=== PATIENT | male | born 1970 | race American Indian/Alaskan Native ===

== ENCOUNTER 2017-03-23 12:07 | Emergency (ER) | payer OTHER ==
--- NOTE | 2017-03-23 12:58 | Emergency Department Report ---
Entered by NAT CALDERON, acting as scribe for ELI RANDOLPH NP. Chief Complaint: Chest Pain Stated Complaint: KNOT IN GROIN AREA - HPI History of Present Illness: 46 y/o male, nontoxic, well developed, NAD, c/o midsternal chest pain beginning 2 years ago, sharp in quality, 4/10 in severity. Associated radiation to the back but radha SOB, SPRINGER, NVD, Blurry vision. Patient also c/o of left groin knot - Exam Vital Signs: Vital Signs 03/23/17 12:22 Temperature 98.1 F Pulse Rate 70 Respiratory 14 Rate Blood Pressure 135/89 O2 Sat by Pulse 99 Oximetry Physical Exam: GENERAL: The patient is a well-developed, well-nourished male in no apparent distress. Patient is alert and oriented x3. LUNGS: Clear to auscultation. Non labor breathing. No intercostal retractions. HEART: Regular rate and rhythm without murmur, rubs or gallops. No reproducible ABDOMEN: Soft, nontender, and nondistended. Positive bowel sounds. Left groin hernia. No hepatosplenomegaly was noted. No guarding or rebound tenderness, negative epigastric bruit. Negative psoas sign, negative muniz sign, negative McBurneys sign MSE screening note: Focused history and physical exam performed. Due to findings the following was ordered: EKG, Cardia CK/CKMB, CBC, CMP, Troponin, CXR ED Disposition for MSE Condition: Stable This documentation as recorded by the scribe,NAT CALDERON,accurately reflects the service I personally performed and the decisions made by ,ELI RANDOLPH, SATNAM.
[2017-03-23 13:32] LABS: Basophils % (Auto) 0.9 % (0.0-1.8); Eosinophils % (Auto) 4.7 % (0.0-4.3); Hemoglobin 16.3 gm/dl (11.8-15.2); Mean Corpuscular HGB Conc 34 % (32-34); Mean Corpuscular Hemoglobin 32 pg (28-32); Mean Corpuscular Volume 93 fl (84-94); Platelet Count 145 K/mm3 (140-440); Red Blood Count 5.14 M/mm3 (3.65-5.03); Red Cell Distribution Width 13.6 % (13.2-15.2); White Blood Count 5.2 K/mm3 (4.5-11.0)
[2017-03-23 13:58] LABS: Alanine Aminotransferase 13 units/L (7-56); Albumin 4.2 g/dL (3.9-5); Albumin/Globulin Ratio 1.6 %; Alkaline Phosphatase 54 units/L (35-129); Anion Gap 16 mmol/L; Blood Urea Nitrogen 8 mg/dL (9-20); Calcium 9.2 mg/dL (8.4-10.2); Carbon Dioxide 26 mmol/L (22-30); Chloride 103.6 mmol/L (98-107); Creatine Kinase 85 units/L (55-170); Glucose 93 mg/dL (75-100); Sodium 142 mmol/L (137-145); Total Protein 6.9 g/dL (6.3-8.2)
--- NOTE | 2017-03-23 14:24 | XRay Report ---
Chest 2 views: History: Chest pain. Findings: Normal cardiomediastinal silhouette. Trachea is midline. No consolidation, pneumothorax or pleural effusion. 8mm circumscribed density noted in the right infraclavicular region. This is partially obscured by ribs. Impression: Circumscribed density right apex. Comparison with previous studies is recommended. If previous study is not available and CT scan advised.
--- NOTE | 2017-03-24 07:47 | Emergency Department Report ---
ED Chest Pain HPI - General Chief Complaint: Chest Pain Stated Complaint: KNOT IN GROIN AREA Time Seen by Provider: 03/24/17 07:34 Source: patient Mode of arrival: Ambulatory Limitations: No Limitations - History of Present Illness Initial Comments: 46-year-old male presents to the emergency department complaining of chest pain. Patient states he has been having upper, mid sternal chest pain for the past 2 years. Pain is intermittent, but he states it is there most of the time. Pain is worse with movement. Pain does not radiate. Pain is described as sharp. He reports occasional palpitations. He denies dizziness, diaphoresis , shortness of breath, nausea, or vomiting. He does report fatigue. Patient also states for the past 5 months he has noticed a "knot" in his left groin. This area is not painful. There are no other complaints. -: Gradual, year(s) (2) Onset: during rest Pain Location: substernal Pain Radiation: none Severity scale (0 -10): 4 Quality: sharp Consistency: constant Improves With: nothing Worsens With: movement re: denies: nausea, vomting, diaphoresis, dyspnea Other Symptoms: palpitations Treatments Prior to Arrival: none Aspirin use within the Past 7 Days: (0) No - Related Data Previous Rx's Medication Instructions Recorded Last Taken Type Ibuprofen [Motrin] 800 mg PO Q8HR PRN #30 tablet 03/24/17 Unknown Rx Allergies Allergy/AdvReac Type Severity Reaction Status Date / Time No Known Allergies Allergy Unverified 03/23/17 12:32 MONI score - Moni Score Age > 65: (0) No Aspirin use within the Past 7 Days: (0) No 3 or more CAD Risk Factors: (0) No 2 or more Angina events in past 24 hrs: (0) No Known CAD with more than 50% Stenosis: (0) No Elevated Cardiac Markers: (0) No ST Deviation Greater than 0.5mm: (0) No MONI Score: 0 ED Review of Systems ROS: Stated complaint: KNOT IN GROIN AREA Other details as noted in HPI Comment: All other systems reviewed and negative Constitutional: other (fatigue) Cardiovascular: chest pain, palpitations ED Past Medical Hx - Past Medical History Previous Medical History?: No - Surgical History Past Surgical History?: No 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 - Family History Family history: no significant - Social History Smoking Status: Current Every Day Smoker Substance Use Type: Alcohol - Medications Home Medications: Home Medications Medication Instructions Recorded Confirmed Last Taken Type Ibuprofen [Motrin] 800 mg PO Q8HR PRN #30 tablet 03/24/17 Unknown Rx ED Physical Exam - General Limitations: No Limitations General appearance: alert, in no apparent distress - Head Head exam: Present: atraumatic, normocephalic - Eye Eye exam: Present: normal appearance, PERRL, EOMI - ENT ENT exam: Present: normal exam, normal orophraynx, mucous membranes moist - Neck Neck exam: Present: normal inspection, full ROM. Absent: tenderness - Respiratory Respiratory exam: Present: normal lung sounds bilaterally. Absent: respiratory distress, chest wall tenderness - Cardiovascular Cardiovascular Exam: Present: regular rate, normal rhythm, normal heart sounds - GI/Abdominal GI/Abdominal exam: Present: soft, normal bowel sounds, hernia (left lower quadrant, above the inguinal ligament. Easily reducible, nontender). Absent: distended, tenderness - Extremities Exam Extremities exam: Present: normal inspection, full ROM. Absent: tenderness - Back Exam Back exam: Present: normal inspection, full ROM. Absent: tenderness - Neurological Exam Neurological exam: Present: alert, oriented X3. Absent: motor sensory deficit - Skin Skin exam: Present: warm, dry, intact ED Course Vital Signs 03/23/17 03/24/17 03/24/17 12:22 04:09 08:16 Temperature 98.1 F 97.9 F Pulse Rate 70 58 L 57 L Respiratory 14 18 9 L Rate Blood Pressure 135/89 140/90 O2 Sat by Pulse 99 100 100 Oximetry 03/24/17 03/24/17 03/24/17 08:17 08:19 08:21 Temperature Pulse Rate 52 L 52 L 59 L Respiratory 12 13 11 L Rate Blood Pressure O2 Sat by Pulse 100 100 100 Oximetry 03/24/17 08:24 Temperature Pulse Rate Respiratory 20 Rate Blood Pressure O2 Sat by Pulse 100 Oximetry ED Medical Decision Making - Lab Data Result diagrams: 03/23/17 13:14 03/23/17 13:14 - EKG Data -: EKG Interpreted by Nm EKG shows normal: sinus rhythm, axis, intervals, QRS complexes, ST-T waves Rate: normal - EKG Data When compared to previous EKG there are: previous EKG unavailable Interpretation: normal EKG - Radiology Data Radiology results: report reviewed, image reviewed Chest x-ray shows an 8 mm circumscribed nodule in the right upper lobe. CT scan is recommended. No other acute abnormalities are noted. CT of the chest shows changes consistent with COPD with bleb formation. No nodules or masses are identified. - Medical Decision Making Lab and imaging results reviewed and discussed with the patient. Patient will be discharged home at this time to follow up with his primary care physician. - Differential Diagnosis atypical chest pain, chest wall pain, ventral hernia Critical care attestation.: If time is entered above; I have spent that time in minutes in the direct care of this critically ill patient, excluding procedure time. ED Disposition Clinical Impression: Costochondritis Ventral hernia Qualifiers: Obstruction and gangrene presence: without obstruction or gangrene Qualified Code(s): K43.9 - Ventral hernia without obstruction or gangrene Disposition: DISCHARGED TO HOME OR SELFCARE Is pt being admited?: No Condition: Stable Instructions: Costochondritis (ED), Ventral Hernia (ED) Prescriptions: Ibuprofen [Motrin] 800 mg PO Q8HR PRN #30 tablet PRN Reason: Pain Referrals: PRIMARY CARE, [Primary Care Provider] - 3-5 Days Time of Disposition: 11:00
[2017-03-24] MEDS ORDERED: NACL ONE (08:00)
--- NOTE | 2017-03-24 09:23 | Cat Scan Report ---
CT of the chest with IV contrast. History: Chest pain, abnormal chest x-ray. Findings: Multiple emphysematous blebs are seen in the upper lobes bilaterally. The lungs are clear. There is no evidence of pulmonary nodule or mass. No pleural fluid is seen. The mediastinum and hilar regions are normal. Impression: COPD with bilateral emphysematous blebs.
[2017-03-24 11:29] VITALS: BP 127/78
== END 2017-03-24 11:27 | disposition home or self-care (01) ==
LOC: ED 12:07
DX: M94.0 Chondrocostal junction syndrome [Tietze] (principal); F17.200 Nicotine dependence, unspecified, uncomplicated
CPT/HCPCS: 36415; 71020; 71260; 80053; 82550; 82553; 84484; 85025; 93005; 93010; 99284; Q9967